=== PATIENT | female | born 1990 | race Native Hawaiian/Other Pacific Islander ===

== ENCOUNTER → 2023-04-26 15:11 | Outpatient (CLI) | payer OTHER, SELFPAY ==
[2023-04-26 16:42] LABS: HCG Quantitative /Beta subunit 10476 mIU/mL
== END ==
PROVIDERS: Referring Provider Obstetrics & Gynecology; Visit Provider Obstetrics & Gynecology
DX: O20.9 Hemorrhage in early pregnancy, unspecified (principal)
CPT/HCPCS: 36415; 84702

== ENCOUNTER → 2023-04-29 12:18 | Outpatient (CLI) | payer OTHER, SELFPAY ==
--- NOTE | 2023-04-29 12:19 | DI.US.S_ITS ---
PROCEDURE: US OB <= 14 WEEKS FETUS INDICATIONS: Viability check OUTSIDE/PRIOR DATING DATA: Last menstrual period (LMP): 03/16/23 LMP-based estimated date of delivery (LINDA): 12/21/23. First dating scan (date and location): This study. Estimated date of delivery (LINDA) from first dating scan: A viable intrauterine gestation has not yet been detected. There is also no evidence of ectopic . TECHNIQUE: Real-time scanning was performed of the fetus and maternal pelvic organs, with image documentation. Endovaginal scanning was also performed to better visualize the fetus and maternal ovaries. COMPARISON: None. FINDINGS: Embryo: No currently viable intrauterine gestation is seen. There is an intrauterine gestational sac with a small yolk sac within and immediately adjacent is a small soft tissue rounded structure of uncertain etiology. Heart rate: Not identified. Maternal organs: Ovaries normal, 3 small uterine fibroids are incidentally noted, the largest of which measures 3.3 cm. . IMPRESSION: An intrauterine gestation with an internal yolk sac is identified but a viable pole is not seen. Correlation with quantitative beta HCG values appears warranted, to determine whether a viable intrauterine gestation should currently be visible. A small soft tissue component immediately adjacent to the yolk sac is identified, of uncertain etiology, which should be further assessed. Follow-up pelvic ultrasound in 1-2 weeks is recommended for more accurate assessment. We strive to produce accurate, complete, and clear reports of imaging services. To assist us in improving patient care, this report was composed using standard report templates and voice recognition software. Therefore, it may contain abnormal punctuation, insertions and/or omissions. Occasional wrong-word or sound-alike substitutions may occur. Though we review the report and make efforts to correct it, we do recommend that the report be read carefully in proper context to recognize any text inaccuracies. Dictated by: Edouard Vincent M.D. on 04/29/2023 at 13:39 Approved by: Edouard Vincent M.D. on 04/29/2023 at 13:45
== END ==
PROVIDERS: Referring Provider Obstetrics & Gynecology; Visit Provider Obstetrics & Gynecology
DX: O26.859 Spotting complicating pregnancy, unspecified trimester (principal)
CPT/HCPCS: 76801; 76817

== ENCOUNTER → 2023-06-16 15:04 | Outpatient (CLI) | payer OTHER, SELFPAY ==
--- NOTE | 2023-06-16 | DI.ECHO.S_ITS ---
[facility]---------+ [facility] +---------+ : : [address] : [place] : : : : [id number] : : : : Phone: [phone]+ Echocardiogram Report + + :Name: SOUMYA NORMAN Study Date: 06/16/2023 Height: 64 in : :[facility] ReadingLocation: Weight: 150 lb : : Gender: Female BSA: 1.7 m2 : :: 1990 Age: 33 yrs BP: 119/78 mmHg: :Reason For Study: Chest pain : :Ordering Physician: SALVADOR, : :LETA Performed By: Karen Kat : :Referring: LETA FRANCO : + + Interpretation Summary The left ventricle is normal in size. The ejection fraction is estimated to be 55-60%. There are no obvious focal wall motion abnormalities noted but poor endocardial definition reduces the sensitivity for the detection of such. Diastolic parameters suggest probable normal left ventricular diastolic function and normal filling pressures. The right ventricle is normal in size and function. The left atrial size is normal. There is no significant valvular heart disease. The aortic root is normal size. Procedure: A two-dimensional transthoracic echocardiogram with color flow and Doppler was performed. The study quality was technically difficult. There is no prior echocardiogram noted for this patient. The patient was in normal sinus rhythm during the exam. Left Ventricle: The left ventricle is normal in size. The ejection fraction is estimated to be 55-60%. There are no obvious focal wall motion abnormalities noted but poor endocardial definition reduces the sensitivity for the detection of such. Diastolic parameters suggest probable normal left ventricular diastolic function and normal filling pressures. Right Ventricle: The right ventricle is normal in size and function. Atria: The left atrial size is normal. Right atrial size is normal. There is no Doppler evidence for an interatrial shunt. Mitral Valve: The mitral valve is normal. There is no mitral valve stenosis. There is trace mitral regurgitation. Aortic Valve: The aortic valve is trileaflet. The aortic valve opens well. There is no aortic valve stenosis. No aortic regurgitation is present. Tricuspid Valve: The tricuspid valve is normal. There is no tricuspid stenosis. There is trace tricuspid regurgitation. Pulmonic Valve: The pulmonic valve leaflets are thin and pliable; valve motion is normal. There is no pulmonic valvular stenosis. There is no pulmonic valvular regurgitation. There is no significant valvular heart disease. Great Vessels: The aortic root is normal size. The ascending aorta is normal in size. The pulmonary artery is normal size. The IVC is of normal diameter and collapses greater than 50% with a sniff. This suggests a low right atrial pressure of 3 mm Hg. Pericardium/ Pleura There is no pericardial effusion. There is no pleural effusion. MMode/2D Measurements & Calculations LVIDd: 4.3 cm LVOT diam: 1.9 cm LVIDs: 2.9 cm Ao root diam: 2.2 cm FS: 32.6 % asc Aorta Diam: 2.4 cm IVSd: 0.80 cm LVPWd: 0.80 cm LV hopper. diameter/BSA (cm/m^2): 2.5 LV sys. diameter/BSA (cm/m^2): 1.7 LA A2 area: 9.4 cm2 RA long axis: 3.8 cm LA A4 area: 10.7 cm2 RA area: 7.3 cm2 LA length (vol): 3.7 cm RA vol: 11.9 ml LA vol: 22.8 ml RA : 6.9 ml/m2 LA vol index: 13.2 ml/m2 RVD1 (basal): 3.2 cm LVLs ap4: 6.0 cm LVLd ap2: 7.1 cm TAPSE_phl: 1.9 cm LVLs ap2: 5.6 cm Doppler Measurements & Calculations Ao V2 max: 126.0 cm/sec LVOT Max Ankur: 90.9 cm/sec Ao V2 mean: 91.1 cm/sec LV V1 max P.3 mmHg Ao max P.0 mmHg LV V1 VTI: 17.3 cm Ao mean P.0 mmHg DAVID(I,D): 2.0 cm2 Ao V2 VTI: 25.0 cm DAVID(V,D): 2.0 cm2 sev ratio: 0.69 DAVID indexed to BSA (cm^2/m^2): 1.1 MV E max ankur: 72.8 cm/sec PA V2 max: 107.0 cm/sec MV A max ankur: 64.5 cm/sec PA V2 mean: 75.0 cm/sec MV E/A: 1.1 PA mean P.0 mmHg Med Peak E' Ankur: 10.4 cm/sec PA pr(Accel): 26.8 mmHg E/E' med: 7.0 Lat Peak E' Ankur: 18.8 cm/sec E/E' lat: 3.9 E/e' average: 5.4 MV dec time: 0.20 sec SV(LVOT): 49.1 ml AV VR_phl: 0.72 DAVID(VTI)/BSA_phl: 1.1 MV P1/2t-pr_phl: 58.0 msec Reading Physician:11:42 PM
== END ==
PROVIDERS: PCP Obstetrics & Gynecology; Referring Provider Internal Medicine; Visit Provider Internal Medicine
DX: R07.9 Chest pain, unspecified (principal)
CPT/HCPCS: 93306

== ENCOUNTER 2023-06-23 14:52 | Emergency (ER) | payer OTHER, SELFPAY ==
[2023-06-23 15:07] VITALS: BP 130/73; PULSE 98; RESP 20; TEMP 36.6; O2SAT 99; BMI 25.7
--- NOTE | 2023-06-23 15:15 | DI.US.S_ITS ---
PROCEDURE: US OB LIMITED INDICATIONS: RIGHT LOWER QUADRANT PAIN OUTSIDE/PRIOR DATING DATA: Last menstrual period (LMP): 03/16/2023 LMP-based estimated date of delivery (LINDA): 12/21/2023 First dating scan (date and location): 04/29/2023 TECHNIQUE: Real-time scanning was performed of the fetus, with image documentation. COMPARISON: [facility], US, US OB <= 14 WEEKS FETUS, 05/19/2023, 14:04. [facility], , US OB <= 14 WEEKS FETUS, 06/14/2023, 12:05. FINDINGS: A single living intrauterine gestation is present. Placenta: Placental position is posterior, without previa. Estimated gestational age from initial scan: 14 weeks 1 day. The uterus has a heterogenous appearance with an area of heterogeneity posterior to the placenta measuring 3.5 x 4.0 cm on sagittal images. On the right there is a probable perigestational hemorrhage measuring 1.3 x 0.7 x 0.7 cm. A right gestational sac uterine synechiae is seen. IMPRESSION: 1. Single living intrauterine 14 weeks 1 day by LMP. 2. Probable perigestational hemorrhage on the right measuring 1.3 x 0.7 x 0.7 cm. 3. Right gestational sac uterine synechiae. 4. Irregular area of heterogeneity posterior to the placenta measuring approximately 3.5 x 4.0 cm of uncertain cause, possibly residua of prior perigestational hemorrhage. Dictated by: Scott Ford M.D. on 06/23/2023 at 16:33 Approved by: Scott Ford M.D. on 06/23/2023 at 16:42
--- NOTE | 2023-06-23 15:15 | DI.US.S_ITS ---
PROCEDURE: US ABDOMEN LIMITED INDICATIONS: RLQ PAIN ? APPENDICITIS TECHNIQUE: Real-time focused scanning was performed of the abdomen, with image documentation. COMPARISON: None. FINDINGS: A likely appendix is seen that measures up to 5 mm. The tip of the appendix is not well seen. There is likely adjacent echogenic fat, with complex adjacent free fluid. There is mural hyperemia. The appendix is not compressible. No appendicoliths can be seen. The patient is tender when scanning over the right lower quadrant. There is a likely prominent lymph node seen adjacent to the appendix that measures up to 9 mm. Overall scan quality is limited by adjacent bowel. IMPRESSION: Visualization of a likely abnormal appendix, yet without john paul dilatation. In this patient, please consider a dedicated appendix protocol MRI (without contrast) for further evaluation (assuming that there is no contraindication). Note: Concordant preliminary findings given by the control valve technician upon the completion of the examination to Dr. Peterson. Dictated by: Rocky Zelaya M.D. on 06/23/2023 at 16:05 Approved by: Rocky Zelaya M.D. on 06/23/2023 at 16:08
[2023-06-23 15:43] LABS: Add Manual Diff / Slide Review NO; Basophils Absolute Auto 0 /uL (0-100); Basophils Percent Auto 0.3 % (0-2); Eosinophils Absolute Auto 400 /uL (0-450); Eosinophils Percent Auto 3.4 % (2-4); Hematocrit 34.9 % (36-46); Hemoglobin 11.7 g/dL (12.0-16.0); Lymphocytes Absolute Auto 2100 /uL (1100-4500); Lymphocytes Percent Auto 16.5 % (25-40); Mean Corpuscular HGB Conc 33.5 % (30-36); Mean Corpuscular Hemoglobin 28.8 PG (26-34); Mean Corpuscular Volume 86.1 fL (80-100); Monocytes Absolute Auto 900 /uL (0-900); Monocytes Percent Auto 6.7 % (3-14); Neutrophils Absolute Auto 9400 /uL (1500-7000); Neutrophils Percent Auto 73.1 % (50-75); Platelet Count 263 X10^3/uL (150-400); Red Blood Cell Count 4.06 X10^6/uL (4.0-5.2); Red Cell Distribution Width 14.6 % (11.6-14.8); White Blood Cell Count 12.9 X10^3/uL (4.5-11.0)
[2023-06-23 15:50] LABS: Bacteria Urine Occasional (0-1); RBC Urine 0-1/HPF (0-5/HPF); Squamous Epithelial Cell Urine 5-10 /HPF (0-5/HPF); WBC Urine 1-5/HPF (0-5/HPF)
[2023-06-23 15:51] LABS: Culture Indicated Urine Cult Not Indicated
[2023-06-23 15:53] LABS: Alanine Aminotransferase 15 IU/L (<35); Albumin Globulin Ratio 1.1 (1.0-2.8); Alkaline Phosphatase 62 U/L (38-126); Aspartate Aminotransferase 21 IU/L (14-36); BUN Creatinine Ratio 22.2 (6-22); Bilirubin Total 0.2 mg/dL (0.2-1.3); Blood Urea Nitrogen 10 mg/dL (7-17); Calcium 8.2 mg/dL (8.4-10.2); Carbon Dioxide 21 mmol/L (22-32); Chloride 105 mmol/L (98-107); Estimated Glomerular Filt Rate > 60 mL/min (>60); Globulin 3.6 g/dL (1.7-4.1); Glucose 82 mg/dL (70-100); HEMOLYSIS < 15 (0-50); Lipase 72 U/L (23-300); Potassium 3.7 mmol/L (3.4-5.1); Sodium 135 mmol/L (137-145); Total Protein 7.6 g/dL (6.3-8.2)
[2023-06-23] MEDS: LACTATED RINGERS 1,000 ML 1000 ML IV (16:11)
--- NOTE | 2023-06-23 16:47 | ED_ITS ---
HPI - Abdominal Pain <Sarahi Peterson DO - Last Filed: 06/24/23 08:22> General Chief Complaint: Abdominal Pain Stated Complaint: poss appendicitis,14 weeks Time Seen by Provider: 06/23/23 15:44 Source: patient Mode of arrival: Ambulatory Limitations: no limitations History of Present Illness HPI narrative: This is a 33-year-old history of uterine fibroids at approximately 14 weeks who presents with right lower quadrant pain that started today. Patient notes she is had occasional spotting but not regularly. She states no fevers. She is had nausea throughout her . No vomiting today. No chest pain or shortness of breath. She states regular bowel movements. No black or bloody stools. No dysuria, urgency or frequency. No spotting recently in the last 24-48 hours. Patient states she is otherwise been healthy no daily medications. Denies any surgeries. States allergies are to control causes shortness of breath. No tobacco, alcohol or illicit. She is accompanied by her today. Dr. Chase is her OBGYN. Related Data Home Medications Medication Instructions Recorded Confirmed [id number] 400 mcg-om3 35 mg-dha 25 tab PO 05/20/23 06/14/23 mg-epa 5 mg-fish oil chewable tablet docosahexaenoic acid 200 mg mg PO 05/20/23 06/14/23 capsule ( DHA) folic acid 400 mcg tablet 0.4 mg PO DAILY 05/20/23 06/14/23 Previous Rx's Medication Instructions Recorded ondansetron 4 mg disintegrating 4 mg PO Q6H PRN nausea and 05/19/23 tablet vomiting #20 tabs Allergies Allergy/AdvReac Type Severity Reaction Status Date / Time maria Allergy Severe Difficulty Verified 06/23/23 15:12 Breathing control Allergy Severe sob Uncoded 06/23/23 15:12 Review of Systems <Sarahi Peterson DO - Last Filed: 06/24/23 08:22> Review of Systems ROS Unobtainable: All systems reviewed & are unremarkable except as noted in HPI and below Patient History <Sarahi Peterson DO - Last Filed: 06/24/23 08:22> Medical History COVID-19 Uterine fibroid Surgical History H/O tooth extraction Family History Father Hypertension Cardiomegaly Diabetes mellitus Mother Hypertension Social History marital status: number of children: 1 household members: spouse and children lives independently: Yes caregiver/support person: Yes housing: house pets and animals: Yes (small dog) education level: college (bachelor's degree) occupational status: previously employed (traveler RN) current occupational exposures/hazards: No (not currently taking assignments during this ) special letitia needs: No travel history: over 6 months ago seatbelt use: always water heater temp set < 120 deg: Yes working smoke detector in home: Yes fire extinguisher in home: Yes carbon monox detector in home: Yes firearms in home: No do you feel safe at home: Yes Smoking Status: Never smoker second hand exposure: No alcohol intake: former (not since before first ) substance use type: does not use during the past year weight has: other (son is 17 months old; 120 lb prior to first child) well-balanced diet: about half the time daily servings fruits/ve-4 caffeine: Yes (1 cup coffee/day) Type(s) of exercise: walking, weight lifting and resistance training frequency: 3-4 times per week duration: 60-90 minutes/day Smoking Status: Never smoker alcohol intake frequency: 0-2 drinks per day Substance Use Type: does not use Exam <Sarahi Peterson DO - Last Filed: 06/24/23 08:22> Narrative Exam Narrative: GENERAL: Alert and oriented x three, well-appearing female in mild distress. HEENT: Head normocephalic, atraumatic, EOMI, pupils reactive, face symmetric, moist mucous membranes NECK: Supple, full range of motion CARDIOVASCULAR: Regular rate and rhythm without murmurs, rubs or gallops. RESPIRATORY: Breath sounds equal bilaterally, no wheezes rales or rhonchi. ABDOMEN: Soft, positive for localized right lower quadrant tenderness. Patient is but no tenderness over the uterus. No contractions palpated. Normoactive bowel sounds all 4 quadrants. No guarding or rebound, rigidity, no mass : No CVA tenderness bilaterally. EXTREMITIES: Normal range of motion, no clubbing or edema. Neurovascularly intact NEUROLOGICAL: Cranial nerves II through XII grossly intact. Moving all extremities SKIN: Warm, dry, no petechiae, no rashes or lesions. Initial Vital Signs Initial Vital Signs: Vital Signs Temperature 97.8 F 06/23/23 15:07 Pulse Rate 98 H 06/23/23 15:07 Respiratory Rate 20 06/23/23 15:07 Blood Pressure 130/73 06/23/23 15:07 Pulse Oximetry 99 06/23/23 15:07 Oxygen Delivery Method Room Air 06/23/23 15:07 <Jessica Villarreal DO - Last Filed: 06/24/23 03:48> Initial Vital Signs Initial Vital Signs: Vital Signs Temperature 97.8 F 06/23/23 15:07 Pulse Rate 98 H 06/23/23 15:07 Respiratory Rate 20 06/23/23 15:07 Blood Pressure 130/73 06/23/23 15:07 Pulse Oximetry 99 06/23/23 15:07 Oxygen Delivery Method Room Air 06/23/23 15:07 Course <Sarahi Peterson, DO - Last Filed: 06/24/23 08:22> Orders Ordered: Discontinued Medications Lactated Ringer's (Lactated Ringers) 1,000 mls @ 1,000 mls/hr IV BOLUS ONE Stop: 06/23/23 16:43 Last Infusion: 06/23/23 17:20 Dose: 0 mls/hr Documented By: Admin: 06/23/23 16:11 Dose: 1,000 mls/hr Documented By: VANNESSA Lactated Ringer's (Lactated Ringers) 1,000 mls @ 125 mls/hr IV CONT KENNY Last Infusion: 06/23/23 20:42 Dose: 125 mls/hr Documented By: Admin: 06/23/23 19:38 Dose: 125 mls/hr Documented By: VANNESSA Ondansetron HCl (Ondansetron 4 Mg Odt) 4 mg PO NOW PRN PRN Reason: Nausea And Vomiting Ondansetron HCl (Ondansetron 4 Mg/2 Ml Inj) 4 mg IV NOW PRN PRN Reason: Nausea And Vomiting Vital Signs Vital signs: Vital Signs - 8 hr 06/23/23 20:42 Pulse Rate 92 H Respiratory Rate 18 Blood Pressure 127/73 Pulse Oximetry 100 Oxygen Delivery Method Room Air <Jessica Villarreal DO - Last Filed: 06/24/23 03:48> Orders Ordered: Discontinued Medications Lactated Ringer's (Lactated Ringers) 1,000 mls @ 1,000 mls/hr IV BOLUS ONE Stop: 06/23/23 16:43 Last Infusion: 06/23/23 17:20 Dose: 0 mls/hr Documented By: Admin: 06/23/23 16:11 Dose: 1,000 mls/hr Documented By: VANNESSA Lactated Ringer's (Lactated Ringers) 1,000 mls @ 125 mls/hr IV CONT KENNY Last Infusion: 06/23/23 20:42 Dose: 125 mls/hr Documented By: Admin: 06/23/23 19:38 Dose: 125 mls/hr Documented By: VANNESSA Ondansetron HCl (Ondansetron 4 Mg Odt) 4 mg PO NOW PRN PRN Reason: Nausea And Vomiting Ondansetron HCl (Ondansetron 4 Mg/2 Ml Inj) 4 mg IV NOW PRN PRN Reason: Nausea And Vomiting Vital Signs Vital signs: Vital Signs - 8 hr 06/23/23 20:42 Pulse Rate 92 H Respiratory Rate 18 Blood Pressure 127/73 Pulse Oximetry 100 Oxygen Delivery Method Room Air MDM - Abdominal Pain <Sarahi Peterson DO - Last Filed: 06/24/23 08:22> Lab Data 06/23/23 15:35 06/23/23 15:35 Labs: Lab Results 06/23/23 06/23/23 06/23/23 Range/Units 15:35 15:35 15:35 WBC 12.9 H (4.5-11.0) X10^3/uL RBC 4.06 (4.0-5.2) X10^6/uL Hgb 11.7 L (12.0-16.0) g/dL Hct 34.9 L (36-46) % MCV 86.1 (80-100) fL MCH 28.8 (26-34) PG MCHC 33.5 (30-36) % RDW 14.6 (11.6-14.8) % Plt Count 263 (150-400) X10^3/uL Neut % (Auto) 73.1 (50-75) % Lymph % (Auto) 16.5 L (25-40) % [place] % (Auto) 6.7 (3-14) % Eos % (Auto) 3.4 (2-4) % Baso % (Auto) 0.3 (0-2) % Neut # (Auto) 9400 H (7015-9870) /uL Lymph # (Auto) 2100 (7957-3273) /uL [place] # (Auto) 900 (0-900) /uL Eos # (Auto) 400 (0-450) /uL Baso # (Auto) 0 (0-100) /uL Sodium 135 L (137-145) mmol/L Potassium 3.7 (3.4-5.1) mmol/L Chloride 105 (98-107) mmol/L Carbon Dioxide 21 L (22-32) mmol/L BUN 10 (7-17) mg/dL Creatinine 0.45 L (0.52-1.04) mg/dL Estimated GFR > 60 (>60) mL/min BUN/Creatinine Ratio 22.2 H (6-22) Glucose 82 (70-100) mg/dL Calcium 8.2 L (8.4-10.2) mg/dL Total Bilirubin 0.2 (0.2-1.3) mg/dL AST 21 (14-36) IU/L ALT 15 (<35) IU/L Alkaline Phosphatase 62 (38-126) U/L Total Protein 7.6 (6.3-8.2) g/dL Albumin 4.0 (3.5-5.0) g/dL Globulin 3.6 (1.7-4.1) g/dL Albumin/Globulin Ratio 1.1 (1.0-2.8) Lipase 72 (23-300) U/L Urine RBC 0-1/hpf (0-5/HPF) Urine WBC 1-5/hpf (0-5/HPF) Ur Squamous Epith Cells 5-10 /hpf H (0-5/HPF) Urine Bacteria Occasional (0-1) (None) Ur Culture Indicated? Cult not indicated Point of care testing: Urine Dip Bedside Urine Glucose Negative Bedside Urine Bilirubin - Negative Bedside Urine Ketone - Negative Urine Specific [place] 1.010 Bedside Urine Occult Blood +/- Bedside Urine pH 7.0 Bedside Urine Protein - Negative Bedside Urine Urobilinogen - Negative Bedside Urine Nitrite - Negative Bedside Urine Leukocytes - Negative Esterase Imaging Data US - OB: Radiologist's Impression: [address] [address] Ultrasound Report Signed Patient: Wilmar Mcdonnell MR#: [id number] : 1990 Acct:[id number] Age/Sex: 33 / F Date of Service: 06/23/23 Loc: ED Accession Number: [id number] ?? Procedure: US OB limited Ordering Provider: Sarahi Petesron D.O. PROCEDURE:? US OB LIMITED ? INDICATIONS:? RIGHT LOWER QUADRANT PAIN ? OUTSIDE/PRIOR DATING DATA:? Last menstrual period (LMP):? 03/16/2023 LMP-based estimated date of delivery (LINDA):? 12/21/2023 First dating scan (date and location):? 04/29/2023 ? TECHNIQUE: Real-time scanning was performed of the fetus, with image documentation.? ? COMPARISON:? [facility], , US OB <= 14 WEEKS FETUS, 05/19/2023, 14:04.? [facility], , US OB <= 14 WEEKS FETUS, 06/14/2023, 12:05. ? FINDINGS:? A single living intrauterine gestation is present.? Placenta:? Placental position is posterior, without previa.? ? Estimated gestational age from initial scan:? 14 weeks 1 day.? ? The uterus has a heterogenous appearance with an area of heterogeneity posterior to the placenta measuring 3.5 x 4.0 cm on sagittal images.? On the right there is a pr obable perigestational hemorrhage measuring 1.3 x 0.7 x 0.7 cm.? A right gestational sac uterine synechiae is seen.? ? IMPRESSION:? 1. Single living intrauterine 14 weeks 1 day by LMP. 2. Probable perigestational hemorrhage on the right measuring 1.3 x 0.7 x 0.7 cm. 3. Right gestational sac uterine synechiae. 4. Irregular area of heterogeneity posterior to the placenta measuring approxim ately 3.5 x 4.0 cm of uncertain cause, possibly residua of prior perigestational hemorrhage.? ? ? Dictated by: Scott Ford M.D. on 06/23/2023 at 16:33 ? ? Approved by: Scott Ford M.D. on 06/23/2023 at 16:42?? US - abdomen: Radiologist's Impression: [address] [address] Ultrasound Report Signed Patient: Wilmar Mcdonnell MR#: [id number] : 1990 Acct:[id number] Age/Sex: 33 / F Date of Service: 06/23/23 Loc: ED Accession Number: [id number] ?? Procedure: US OB limited Ordering Provider: Sarahi Peterson D.O. PROCEDURE:? US OB LIMITED ? INDICATIONS:? RIGHT LOWER QUADRANT PAIN ? OUTSIDE/PRIOR DATING DATA:? Last menstrual period (LMP):? 03/16/2023 LMP-based estimated date of delivery (LINDA):? 12/21/2023 First dating scan (date and location):? 04/29/2023 ? TECHNIQUE: Real-time scanning was performed of the fetus, with image documentation.? ? COMPARISON:? [facility], , OB <= 14 WEEKS FETUS, 05/19/2023, 14:04.? [facility], , US OB <= 14 WEEKS FETUS, 06/14/2023, 12:05. ? FINDINGS:? A single living intrauterine gestation is present.? Placenta:? Placental position is posterior, without previa.? ? Estimated gestational age from initial scan:? 14 weeks 1 day.? ? The uterus has a heterogenous appearance with an area of heterogeneity posterior to the placenta measuring 3.5 x 4.0 cm on sagittal images.? On the right there is a probable perigestational hemorrhage measuring 1.3 x 0.7 x 0.7 cm.? A right gestational sac uterine synechiae is seen.? ? IMPRESSION:? 1. Single living intrauterine 14 weeks 1 day by LMP. 2. Probable perigestational hemorrhage on the right measuring 1.3 x 0.7 x 0.7 cm. 3. Right gestational sac uterine synechiae. 4. Irregular area of heterogeneity posterior to the placenta measuring approximately 3.5 x 4.0 cm of uncertain cause, possibly residua of prior perigestational hemorrhage.? ? ? Dictated by: Sctot Ford M.D. on 06/23/2023 at 16:33 ? ? Approved by: Scott Ford M.D. on 06/23/2023 at 16:42?? [facility] Narrative Medical decision making narrative: 33-year-old female comes in with right lower quadrant pain if proximally 14 weeks , patient so far has had uneventful . Patient is tender much more localized to the right lower quadrant are not over the uterus. Labs show white count 12.9, hemoglobin is 11.7 with a hematocrit of 34 platelets are normal at 263. Nine thousand four hundred neutrophils percentage is not elevated. Sodium is 135 normal potassium CO2 is 21 with normal renal function and BUN, glucose is 8.2 normal LFTs lipase is negative. Urine point of care shows occult blood, 0-1 RBCs, 1-5 WBCs 5-10 squamous epithelials with occasional bacteria. Ob ultrasound shows single living intrauterine placenta is posterior without previa 14 weeks by 1 day. Probable perigestational hemorrhage on the right 1.3 x 0.7 x 0.7 cm right gestational sac uterine initiate, irregular heterogeneity posterior placenta 3.5 x 4.5 cm uncertain cause possible residual perigestational hemorrhage patient's chart notes prior fibroids. Abdominal ultrasound shows possible appendicitis likely abnormal but without john paul dilation or clear criteria MRI appendix protocol is recommended. Discussed with patient regarding MRI appendix protocol, risks versus benefits she is tender in the right lower quadrant it has been fairly abrupt onset but ultrasound imaging is concerning for appendicitis. After discussion patient is agreeable. Patient received MR is currently pending signed out to Dr. Villarreal while awaiting final report. Dr. Villarreal-patient signed out to me by Dr. Peterson I have seen evaluated patient myself. She does have some pinpoint tenderness on the right side started suddenly today. No real flank pain she is not had any fever lab 2nd reviewed. MRI does not show any evidence of acute appendicitis. Ultrasound confirms healthy live IUP at 14 weeks. She is to follow-up with Dr. Chase in a couple of weeks. At this time no need to consult surgery or OB. Patient is given supportive measures to go home. <Jessica Villarreal, - Last Filed: 06/24/23 03:48> Lab Data Labs: Lab Results 06/23/23 06/23/23 06/23/23 Range/Units 15:35 15:35 15:35 WBC 12.9 H (4.5-11.0) X10^3/uL RBC 4.06 (4.0-5.2) X10^6/uL Hgb 11.7 L (12.0-16.0) g/dL Hct 34.9 L (36-46) % MCV 86.1 (80-100) fL MCH 28.8 (26-34) PG MCHC 33.5 (30-36) % RDW 14.6 (11.6-14.8) % Plt Count 263 (150-400) X10^3/uL Neut % (Auto) 73.1 (50-75) % Lymph % (Auto) 16.5 L (25-40) % [place] % (Auto) 6.7 (3-14) % Eos % (Auto) 3.4 (2-4) % Baso % (Auto) 0.3 (0-2) % Neut # (Auto) 9400 H (2418-3179) /uL Lymph # (Auto) 2100 (8822-5872) /uL [place] # (Auto) 900 (0-900) /uL Eos # (Auto) 400 (0-450) /uL Baso # (Auto) 0 (0-100) /uL Sodium 135 L (137-145) mmol/L Potassium 3.7 (3.4-5.1) mmol/L Chloride 105 (98-107) mmol/L Carbon Dioxide 21 L (22-32) mmol/L BUN 10 (7-17) mg/dL Creatinine 0.45 L (0.52-1.04) mg/dL Estimated GFR > 60 (>60) mL/min BUN/Creatinine Ratio 22.2 H (6-22) Glucose 82 (70-100) mg/dL Calcium 8.2 L (8.4-10.2) mg/dL Total Bilirubin 0.2 (0.2-1.3) mg/dL AST 21 (14-36) IU/L ALT 15 (<35) IU/L Alkaline Phosphatase 62 (38-126) U/L Total Protein 7.6 (6.3-8.2) g/dL Albumin 4.0 (3.5-5.0) g/dL Globulin 3.6 (1.7-4.1) g/dL Albumin/Globulin Ratio 1.1 (1.0-2.8) Lipase 72 (23-300) U/L Urine RBC 0-1/hpf (0-5/HPF) Urine WBC 1-5/hpf (0-5/HPF) Ur Squamous Epith Cells 5-10 /hpf H (0-5/HPF) Urine Bacteria Occasional (0-1) (None) Ur Culture Indicated? Cult not indicated Point of care testing: Urine Dip Bedside Urine Glucose Negative Bedside Urine Bilirubin - Negative Bedside Urine Ketone - Negative Urine Specific [place] 1.010 Bedside Urine Occult Blood +/- Bedside Urine pH 7.0 Bedside Urine Protein - Negative Bedside Urine Urobilinogen - Negative Bedside Urine Nitrite - Negative Bedside Urine Leukocytes - Negative Esterase Imaging Data MR ab: Radiologist's Impression: PROCEDURE:? MR PELVIS WO CON ? INDICATIONS:? appendicitis ? TECHNIQUE: Noncontrast coronal, axial, and sagittal HASTE, axial HASTE with fat saturation, axial 2-D FLASH in- and [id number], axial 2-D time of flight, axial diffusion and ADC from the kidneys to the symphysis.? ? COMPARISON:? [facility], , OB LIMITED, 06/23/2023, 15:51.? [facility], , ABDOMEN LIMITED, 06/23/2023, 15:51. ? FINDINGS:? ? An intrauterine is present.? Fetus is not well evaluated on this examination optimized for evaluation of maternal structures. ? Bowel:? No definite free fluid.? Visualized small and large bowel loops are normal in caliber.? No asymmetric soft tissue edema in the right lower quadrant to suggest acute appendicitis.? ? Genitourinary system:? No hydronephrosis. ? Bones:? Unremarkable. ? IMPRESSION:? No definite MR evidence of acute appendicitis. ? ? Dictated by: Jonas Peck M.D. on 06/23/2023 at 19:26 ?? [facility] Narrative Medical decision making narrative: 33-year-old female comes in with right lower quadrant pain if proximally 14 weeks , patient so far has had uneventful . Patient is tender much more localized to the right lower quadrant are not over the uterus. Labs show white count 12.9, hemoglobin is 11.7 with a hematocrit of 34 platelets are normal at 263. Nine thousand four hundred neutrophils percentage is not elevated. Sodium is 135 normal potassium CO2 is 21 with normal renal function and BUN, glucose is 8.2 normal LFTs lipase is negative. Urine point of care shows occult blood, 0-1 RBCs, 1-5 WBCs 5-10 squamous epithelials with occasional bacteria. Ob ultrasound shows single living intrauterine placenta is posterior without previa 14 weeks by 1 day. Probable perigestational hemorrhage on the right 1.3 x 0.7 x 0.7 cm right gestational sac uterine initiate, irregular heterogeneity posterior placenta 3.5 x 4.5 cm uncertain cause possible residual perigestational hemorrhage patient's chart notes prior fibroids. Abdominal ultrasound shows Case is discussed Dr. Villarreal-patient signed out to me by Dr. Peterson I have seen evaluated patient myself. She does have some pinpoint tenderness on the right side started suddenly today. No real flank pain she is not had any fever lab 2nd reviewed. MRI does not show any evidence of acute appendicitis. Ultrasound confirms healthy live IUP at 14 weeks. She is to follow-up with Dr. Chase in a couple of weeks. At this time no need to consult surgery or OB. Patient is given supportive measures to go home. Discharge Plan Departure Patient Disposition: Home Clinical Impression: Abdominal pain during , Uterine synechiae Instructions: DI for Abdominal Pain -- Early Activity Restrictions/Additional Instructions: *You have been diagnosed with abdominal pain and *What to do: At this time no evidence of appendicitis. Possible scar tissue causing pain. Take Tylenol as needed stay hydrated. Please follow-up with Ob *Continue to take medications as directed Tylenol 1000 mg every 6 hours if needed for [id number] pain *Follow up with your primary care provider in 2-3 days or call [phone] *Return to ER if you should have increasing pain nausea vomiting vaginal bleeding or any new, worsening or concerning symptoms Prescriptions: No Action ondansetron 4 mg tablet,disintegrating 4 mg PO Q6H PRN (Reason: nausea and vomiting) Qty: 20 3RF [id number] oil 400 mcg-35 mg -25 mg-5 mg tablet,chewable PO DHA 200 mg capsule PO folic acid 400 mcg tablet 0.4 mg PO DAILY Referrals: Karen Berman MD [Primary Care Provider] - Coretta Chase MD [Physician] - Stand Alone Forms: Patient Portal/API
--- NOTE | 2023-06-23 17:27 | DI.MRI.S_ITS ---
PROCEDURE: MR PELVIS WO CON INDICATIONS: appendicitis TECHNIQUE: Noncontrast coronal, axial, and sagittal HASTE, axial HASTE with fat saturation, axial 2-D FLASH in- and [id number], axial 2-D time of flight, axial diffusion and ADC from the kidneys to the symphysis. COMPARISON: [facility], US OB LIMITED, 06/23/2023, 15:51. [facility], , US ABDOMEN LIMITED, 06/23/2023, 15:51. FINDINGS: An intrauterine is present. Fetus is not well evaluated on this examination optimized for evaluation of maternal structures. Bowel: No definite free fluid. Visualized small and large bowel loops are normal in caliber. No asymmetric soft tissue edema in the right lower quadrant to suggest acute appendicitis. Genitourinary system: No hydronephrosis. Bones: Unremarkable. IMPRESSION: No definite MR evidence of acute appendicitis. Dictated by: Jonas Peck M.D. on 06/23/2023 at 19:26 Approved by: Jonas Peck M.D. on 06/23/2023 at 19:37
[2023-06-23] MEDS: LACTATED RINGERS 1,000 ML 125 ML IV (19:38)
[2023-06-23 20:42] VITALS: BP 127/73; PULSE 92; RESP 18; O2SAT 100
== END 2023-06-23 20:44 | disposition home or self-care (01) ==
PROVIDERS: Emergency Medicine; Emergency Provider Emergency Medicine; PCP Obstetrics & Gynecology; Referring Provider Obstetrics & Gynecology
DX: O26.891 Other specified pregnancy related conditions, first trimester (principal); R10.31 Right lower quadrant pain; N85.6 Intrauterine synechiae; Z3A.14 14 weeks gestation of pregnancy
CPT/HCPCS: 36415; 72195; 76705; 76815; 80053; 81003; 81015; 83690; 85025; 96360; 96361; 99284

== ENCOUNTER → 2023-07-12 16:08 | Outpatient (CLI) | payer OTHER, SELFPAY ==
[2023-07-15 10:38] LABS: AFP, Serum 31.6 ng/mL (.); Estriol, Free 0.82 ng/mL (.); Inhibin A, Dimeric 108.08 pg/mL (.); Inhibin A, MoM 0.56 (.); Maternal Weight 151 lbs (.); Number of Fetuses No (.); OSBR Risk 1 IN 10000 (.); Results Report (.); Test Results *Screen Negative* (.); hCG, MoM 1.26 (.); hCG, Serum 31454 mIU/mL (.)
== END ==
PROVIDERS: PCP Obstetrics & Gynecology; Referring Provider Obstetrics & Gynecology; Visit Provider Obstetrics & Gynecology
DX: Z34.82 Encounter for supervision of other normal pregnancy, second trimester (principal); Z3A.16 16 weeks gestation of pregnancy
CPT/HCPCS: 36415; 82105; 82677; 84702; 86336

== ENCOUNTER → 2023-07-26 15:17 | Outpatient (CLI) | payer OTHER, SELFPAY ==
--- NOTE | 2023-07-26 15:18 | DI.US.S_ITS ---
PROCEDURE: US OB >= 14 WEEKS FETUS INDICATIONS: ANATOMY OUTSIDE/PRIOR DATING DATA: Last menstrual period (LMP): 03/16/2023. LMP-based estimated date of delivery (LINDA): 12/21/2023. First dating scan (date and location): 05/19/2023. Estimated date of delivery (LINDA) from first dating scan: 12/25/2023. The calculations are made using the ultrasound LINDA of 12/25/2023. TECHNIQUE: Real-time scanning was performed of the fetus, with image documentation and biometric measurements. COMPARISON: None. FINDINGS: General: A single living intrauterine gestation is present. Presentation: Vertex. Placenta: Placental position is posterior , without previa. Amniotic fluid index: 11.4 cm, normal range is 5-24 cm. Single deepest vertical pocket is 3.9 cm. heart rate: 155 beats per minute. Maternal cervical canal: 3.3 cm long. The placenta measures 1.7 cm from the cervical os consistent with a low lying placenta. biometrics: Biparietal diameter: 4.1 cm. 18 weeks 4 days. Head circumference: 15.3 cm. 18 weeks 2 days Abdominal circumference: 13.7 cm. 19 weeks 1 day Femur length: 2.8 cm. 18 weeks 3 days Clinically estimated gestational age: Age 18 weeks 6 days Composite gestational age from present scan: 18 weeks 4 days Estimated weight and percentile: 256 g. 39th percentile. Anatomic survey: Neuro: The left lateral ventricle has limited visualization due to lie of the fetus but appears enlarged measuring 11.6 mm, normal is less than 10 mm. Cisterna magna is normal at 3-11 mm. Cerebellum is normal in size and morphology. Nuchal skin fold: Normal at less than 6 mm between 14-21 weeks gestational age. Face: Nose and lips, facial profile are normal. Spine: No evidence for spina bifida. Heart: Heart views are not well visualized due to limited visualization due to lie. Diaphragm: Diaphragm is intact. Stomach: Left-sided stomach is present. Kidneys: No hydronephrosis. Normal is less than 5 mm in 2nd trimester, less than 7 mm in 3rd trimester. Cord: 3-vessel cord has orthotopic insertion. Bladder: Normal in size. Extremities: All 4 extremities identified. Maternal anatomy: Possible right anterior superior fibroid measuring 1.1 x 0.5 x 0.8 cm. IMPRESSION: 1. Single live intrauterine with appropriate growth. 2. Low lying placenta. 3. Limited visualization of the ventricles due to lie, however the left ventricle appears enlarged on these limited images measuring 11.6 mm, normal being up to 10 mm. We strive to produce accurate, complete, and clear reports of imaging services. To assist us in improving patient care, this report was composed using standard report templates and voice recognition software. Therefore, it may contain abnormal punctuation, insertions and/or omissions. Occasional wrong-word or sound-alike substitutions may occur. Though we review the report and make efforts to correct it, we do recommend that the report be read carefully in proper context to recognize any text inaccuracies. anomalies recommendations DELETE FROM FINAL REPORT Measurement variability for biometric dating: +/- 7 days from 14 weeks to 15 weeks 6 days gestation, +/- 10 days from 16 weeks to 21 weeks 6 days gestation, +/- 2 weeks from 22 weeks to 27 weeks 6 days gestation, +/- 3 weeks for 28 weeks gestation or later. weight reference: 4500 g or EFW >90/95% is considered macrosomia or large for gestational age. EFW <10% is small for gestational age. EFW 5% or less is considered intra-uterine growth restriction. Derived from [employer] Practice Bulletin #163, March 2016. Screening for aneuploidy. * Thickened nuchal fold: most powerful 2nd trimester marker for Down syndrome, with 40-50% sensitivity and >99% specificity. * Choroid plexus cyst: in isolation, no association with aneuploidy. If cardiac structures and hands are open (normal), no further imaging followup. Consider aneuploidy screening or diagnostic testing if other markers are present. * Ventriculomegaly between 10-15 mm: associated with aneuploidy, 25 fold likelihood of Down syndrome. Refer to tertiary care center for high-risk OB workup. * Echogenic intracardiac focus: 1.4-1.8 fold likelihood of Down syndrome. If isolated finding, consider aneuploidy screening with cell-free DNA. If aneuploidy screen is negative, no further evaluation needed. * Pelvicaliectasis: renal pelvis measures 4 mm or more AP diameter up to 20 weeks EGA. 1.5-1.6 fold likelihood of Down syndrome. If isolated finding, consider aneuploidy screening with cell-free DNA. Also, recommend repeat US in 3rd trimester; if 7 mm or smaller, then no further workup is needed. * Echogenic bowel (equal to bone on low frequency transducer): associated with aneuploidy, intra-amniotic bleeding, cystic fibrosis, CMV. Refer to tertiary care center for highway maintenance crew worker workup. * Short femur length (<2.5 percentile for EGA): Can be associated with aneuploidy, IUGR, short limb dysplasia. Recommend detailed anatomic survey, consider repeat US in 3rd trimester. Dictated by: Scott Ford M.D. on 07/27/2023 at 8:55 Approved by: Scott Ford M.D. on 07/27/2023 at 9:02
== END ==
PROVIDERS: PCP Obstetrics & Gynecology; Referring Provider Obstetrics & Gynecology; Visit Provider Obstetrics & Gynecology
DX: O44.42 Low lying placenta NOS or without hemorrhage, second trimester (principal); Z3A.18 18 weeks gestation of pregnancy
CPT/HCPCS: 76811

== ENCOUNTER → 2023-08-01 15:50 | Outpatient (CLI) | payer OTHER, SELFPAY ==
--- NOTE | 2023-08-01 15:52 | DI.US.S_ITS ---
PROCEDURE: US OB FOLLOW UP INDICATIONS: RE-EVALUATE OUTSIDE/PRIOR DATING DATA: Last menstrual period (LMP): 03/16/2023. LMP-based estimated date of delivery (LINDA): 12/21/2023. First dating scan (date and location): 05/19/2023. Estimated date of delivery (LINDA) from first dating scan: 12/25/2023. The calculations are made using the clinical LINDA of 12/21/2023. TECHNIQUE: Real-time scanning was performed of the fetus, with image documentation. COMPARISON: [facility], US, US OB >= 14 WEEKS FETUS, 07/26/2023, 15:51. FINDINGS: A single living intrauterine gestation is present. Presentation: Transverse. Placenta: Placental position is posterior, without previa. Posterior placenta is 3 cm from the internal os. Amniotic fluid index: 13.0 cm, normal range is 5-24 cm. Single deepest vertical pocket is 4.8 cm. heart rate: 160 beats per minute. Maternal cervical canal: 3.0 cm long. Normal lower limit is 2.5 cm. Clinically estimated gestational age: 19 weeks 5 days IMPRESSION: Single live intrauterine with posterior placenta 3.0 cm from the internal os. Dictated by: Yady Mora M.D. on 08/01/2023 at 17:32 Approved by: Yady Mora M.D. on 08/01/2023 at 17:34
== END ==
PROVIDERS: PCP Obstetrics & Gynecology; Referring Provider Specialist; Visit Provider Specialist
DX: Z36.2 Encounter for other antenatal screening follow-up (principal); Z3A.19 19 weeks gestation of pregnancy
CPT/HCPCS: 76816